=== PATIENT | male | born 1985 | race American Indian/Alaskan Native ===

== ENCOUNTER 2016-10-07 11:59 | Emergency (ER) | payer OTHER ==
[2016-10-07] MEDS ORDERED: TETRACAINE 0.5% OU ONE (13:15)
[2016-10-07] MEDS ORDERED: FUL-GLO OP ONE (13:15)
--- NOTE | 2016-10-07 13:25 | Emergency Department Report ---
ED Eye Problem HPI - General Chief complaint: Eye Problems Stated complaint: EYES SWOLLEN WITH PUFFY D/C Time Seen by Provider: 10/07/16 13:09 Source: patient, family Mode of arrival: Ambulatory Limitations: No Limitations - History of Present Illness Initial comments: Patient here complaining of bilateral eye irritation since last Sunday. Denies any exposure to noxious material. He reports that his eyes were red itchy and drainage. He denies any pain. Tetanus vaccine is up-to-date. Denies any discharge he just reports that was watery and it's worse when he goes outside. Denies taking any [id number] medication. Denies Any similar incident. Denies any blurred vision or contact use. chief complaint: eye redness, other (Chin injury and then) Onset/Timin -: days(s) Onset Description: gradual Location: both eyes Place: street/outdoors If Injury: none Eye Symptoms: redness, itching, other (clear drainage) Severity scale (0 -10): 0 Context: recent uri Associated Symptoms: rhinorrhea. denies: headache, neck pain, nausea/vomiting, cough, fever, shortness of breath Treatments Prior to Arrival: none - Related Data Patient Tetanus UTD: Yes Previous Rx's Medication Instructions Recorded Last Taken Type Fexofenadine/Pseudoephedrine 1 each PO QAM #12 tab.er.24h 10/07/16 Unknown Rx [Thalia-D 24 Hour Tablet] Naphazo HCl/Hpm/Ps 80/Zn Sulf 15 ml OU TID PRN #1 drops 10/07/16 Unknown Rx [Clear Eyes Complete Eye Drops] Allergies Allergy/AdvReac Type Severity Reaction Status Date / Time No Known Allergies Allergy Unverified 10/07/16 12:11 ED Review of Systems ROS: Stated complaint: EYES SWOLLEN WITH PUFFY D/C Other details as noted in HPI Comment: All other systems reviewed and negative Constitutional: denies: chills, fever Eyes: other (both eyes erythema, irritation and clear drainage) ENT: congestion. denies: ear pain, throat pain Respiratory: no symptoms reported Cardiovascular: denies: chest pain, palpitations, edema, syncope Gastrointestinal: denies: nausea, vomiting Skin: denies: rash Neurological: denies: headache ED Past Medical Hx - Past Medical History Previous Medical History?: No - Surgical History Past Surgical History?: No - Family History Family history: no significant - Social History Smoking Status: Never Smoker Substance Use Type: Alcohol - Medications Home Medications: Home Medications Medication Instructions Recorded Confirmed Last Taken Type Fexofenadine/Pseudoephedrine 1 each PO QAM #12 tab.er.24h 10/07/16 Unknown Rx [Thalia-D 24 Hour Tablet] Naphazo HCl/Hpm/Ps 80/Zn Sulf 15 ml OU TID PRN #1 drops 10/07/16 Unknown Rx [Clear Eyes Complete Eye Drops] ED Physical Exam - General Limitations: No Limitations General appearance: alert, in no apparent distress - Head Head exam: Present: atraumatic, normocephalic, normal inspection - Eye Eye exam: Present: PERRL, EOMI, other (Sushil. Scleral erythema ). Absent: nystagmus, periorbital swelling, periorbital tenderness Pupils: Present: normal accommodation - Expanded Eye Exam Expanded Eyelids: Normal Inspection: Right (bilateral) Pupils: Regular, Round: Bilateral, Reactive: Bilateral Sclera/Conjunctival: Injection: Bilateral (erythema) Anterior chamber: Normal Inspection: Bilateral Posterior chamber: Normal Inspection: Bilateral Visual acuity (R) = 20/: 15 Visual acuity (L) = 20/: 20 (OU 20/10) With correction: No - ENT ENT exam: Present: normal orophraynx, mucous membranes moist, normal external ear exam, other (nasal mucosa pale and boggy). Absent: TM's normal bilaterally (sushil tm congested) - Neck Neck exam: Present: normal inspection, full ROM. Absent: tenderness, meningismus, lymphadenopathy - Respiratory Respiratory exam: Present: normal lung sounds bilaterally. Absent: respiratory distress, chest wall tenderness - Cardiovascular Cardiovascular Exam: Present: normal rhythm, bradycardia, normal heart sounds - GI/Abdominal GI/Abdominal exam: Present: soft, normal bowel sounds. Absent: distended, tenderness, guarding, rebound, rigid - Extremities Exam Extremities exam: Present: normal inspection, full ROM, normal capillary refill. Absent: tenderness, pedal edema, joint swelling, calf tenderness - Back Exam Back exam: Present: normal inspection, full ROM. Absent: tenderness, CVA tenderness (R), CVA tenderness (L), muscle spasm, paraspinal tenderness, vertebral tenderness, rash noted - Neurological Exam Neurological exam: Present: alert, oriented X3, normal gait, reflexes normal. Absent: motor sensory deficit - Psychiatric Psychiatric exam: Present: normal affect, normal mood - Skin Skin exam: Present: warm, dry, intact, normal color. Absent: rash ED Course Vital Signs 10/07/16 12:08 Temperature 97.7 F Pulse Rate 55 L Respiratory 18 Rate Blood Pressure 129/75 O2 Sat by Pulse 100 Oximetry - Reevaluation(s) Reevaluation #1: 10/07/16 14:09 See procedure note for with flank test and - Procedure Description Procedures done: Eye procedure: One drop of 0.5% tetracaine placed in both eyes. Fluorescein staining to both eyes. Both eyes visualized under Lozano lamp and no corneal ulcer or abrasion seen. Funduscopic exam is normal. Visual acuity within normal limits. ED Medical Decision Making - Medical Decision Making ED course: Patient with allergic rhinitis and allergic conjunctivitis. I discussed diagnosis and treatment plan with him. I discussed with him that he needs to follow up with [facility] specialist for further evaluation and treatment. See procedure note for details on eye procedure. Patient discharged home in stable condition with prescription for clear eyes and Thalia. tetanus vaccine is up-to-date. Critical care attestation.: If time is entered above; I have spent that time in minutes in the direct care of this critically ill patient, excluding procedure time. ED Disposition Clinical Impression: Allergic conjunctivitis and rhinitis Qualifiers: Laterality: bilateral Qualified Code(s): H10.13 - Acute atopic conjunctivitis, bilateral; J30.9 - Allergic rhinitis, unspecified Disposition: DISCHARGED TO HOME OR SELFCARE Is pt being admited?: No Does the pt Need Aspirin: No Condition: Stable Instructions: Allergies (ED), Conjunctivitis (ED) Additional Instructions: Take eyedrop as instructed Take Thalia as instructed Follow up with eye doctor in 2 days Prescriptions: Fexofenadine/Pseudoephedrine [Thalia-D 24 Hour Tablet] 1 each PO QAM #12 tab.er.24h Naphazo HCl/Hpm/Ps 80/Zn Sulf [Clear Eyes Complete Eye Drops] 15 ml OU TID PRN # 1 drops PRN Reason: Allergy Symptoms Referrals: BRAULIO TRACY MD [Staff Physician] - 10/09/16 Forms: Accompanied Note, Work/School Release Form(ED)
[2016-10-07 14:27] VITALS: BP 121/82
== END 2016-10-07 14:27 | disposition home or self-care (01) ==
LOC: EDBD 11:59 → ED 11:59
DX: H10.13 Acute atopic conjunctivitis, bilateral (principal)
CPT/HCPCS: 99283

== ENCOUNTER 2017-05-23 05:21 | Emergency (ER) | payer OTHER ==
[2017-05-23 05:33] VITALS: BP 149/99
[2017-05-23 06:08] LABS: Basophils % (Auto) 0.3 % (0.0-1.8); Eosinophils % (Auto) 0.6 % (0.0-4.3); Hematocrit 45.3 % (35.5-45.6); Hemoglobin 14.7 gm/dl (11.8-15.2); Mean Corpuscular HGB Conc 32 % (32-34); Mean Corpuscular Hemoglobin 27 pg (28-32); Mean Corpuscular Volume 85 fl (84-94); Platelet Count 127 K/mm3 (140-440); Red Blood Count 5.36 M/mm3 (3.65-5.03); Red Cell Distribution Width 13.4 % (13.2-15.2); White Blood Count 8.7 K/mm3 (4.5-11.0)
[2017-05-23 06:23] LABS: Alanine Aminotransferase 29 units/L (7-56); Albumin/Globulin Ratio 1.5 %; Alkaline Phosphatase 58 units/L (35-129); BUN/Creatinine Ratio 10; Blood Urea Nitrogen 10 mg/dL (9-20); Calcium 8.6 mg/dL (8.4-10.2); Carbon Dioxide 30 mmol/L (22-30); Glucose 130 mg/dL (75-100); Lipase 15 units/L (13-60); Total Protein 6.6 g/dL (6.3-8.2)
[2017-05-23 06:24] LABS: Anion Gap 15 mmol/L; Chloride 98.8 mmol/L (98-107); Sodium 140 mmol/L (137-145)
[2017-05-23] MEDS ORDERED: ZOFRAN ODT PO ONE (07:25)
[2017-05-23 07:37] LABS: Bilirubin,Urine NEG (Negative); Blood,Urine NEG (Negative); Ketones,Urine NEG (Negative); Leukocyte Esterase,Urine TR (Negative); Mucus,Urine FEW /HPF; Nitrite,Urine NEG (Negative); Protein,Urine <15 mg/dL mg/dL (Negative); Urobilinogen,Urine < 2.0 mg/dL (<2.0)
[2017-05-23] MEDS ORDERED: TYLENOL PO ONE (07:47)
[2017-05-23] MEDS ORDERED: TYLENOL ONE (07:48)
== END 2017-05-23 14:45 | disposition left against medical advice (07) ==
LOC: ED 05:21
DX: R10.9 Unspecified abdominal pain (principal); Z53.21 Procedure and treatment not carried out due to patient leaving prior to being seen by health care provider
CPT/HCPCS: 36415; 80053; 81001; 83690; 85025; Q0162